=== PATIENT | female | born 1955 | race Two or more races ===

== ENCOUNTER 2019-02-10 08:35 | Day surgery (SDC) | payer OTHER ==
[~2019-02-10 08:35] MED LIST: ATORVASTATIN CA10 MG PO; KETO10TA2 PO; Norflex PO; OMEGA-31000 MG PO; PERCOCET 5-3251 EACH PO; SYNTHROID75 MCG PO; VITAMIN D400 UNI2 PO; VITAMIN E400 UNI2 PO
== END 2019-02-10 21:15 | disposition home or self-care (01) ==
LOC: CIR.AMB 08:35
DX: K64.8 Other hemorrhoids (principal); K64.4 Residual hemorrhoidal skin tags

== ENCOUNTER 2021-02-22 08:08 | Outpatient (CLI) | payer OTHER | END 2021-02-22 08:17 | disposition home or self-care (01) | LOC: RX STUDY 08:08 | PROVIDERS: ATTEND Internal Medicine Gastroenterology | DX: R13.19 Other dysphagia (principal); R07.89 Other chest pain ==